=== PATIENT | male | born 1955 | race Caucasian/White ===

== ENCOUNTER → 2018-04-09 | Outpatient (CLI) | payer OTHER ==
[~2018-04-09] MED LIST: FOLI1TAB15 PO; METH25VI11 PO
== END | disposition home or self-care (01) ==
LOC: RAH 11:02
PROVIDERS: ATTEND Internal Medicine Pulmonary Disease
DX: R91.8 Other nonspecific abnormal finding of lung field (principal); K80.20 Calculus of gallbladder without cholecystitis without obstruction; E78.5 Hyperlipidemia, unspecified
CPT/HCPCS: 71250